=== PATIENT | male | born 1955 | race Caucasian/White ===

== ENCOUNTER 2018-12-25 05:34 | Emergency (ER) | payer MEDICARE, OTHER ==
[~2018-12-25] VITALS: Ht 182.9 cm; Wt 113.6 kg
[2018-12-25 05:52] LABS: GFR > 60 ML/MIN (>=60 (CALC)); GFR FOR AFR.AMER. > 60 ML/MIN (>=60 (CALC))
[2018-12-25 05:59] LABS: HEMATOCRIT 48.2 % (39.0-50.0); HEMOGLOBIN 15.8 g/dl (14.0-18.0); IMMATURE GRANULOCYTES 0.5 % (0.0-5.0); MEAN CELL VOLUME 95.4 fL CALC (80.0-100.0); MEAN CORPUSCULAR HGB 31.3 pG CALC (26.0-32.0); MEAN CORPUSCULAR HGB CONC 32.8 g/L CALC (32.0-36.0); NEUT# 5.65 thou/uL (1.82-7.42); RED BLOOD COUNT 5.05 mill/uL (4.70-6.10)
[2018-12-25 06:12] LABS: INTERNATIONAL NORMALIZED RATIO 1.1 RATIO (0.7-1.3); PROTHROMBIN TIME 11.1 SECONDS (9.0-12.5)
[2018-12-25 06:17] LABS: ALBUMIN 4.3 g/dL (3.2-5.0); ALKALINE PHOSPHATASE 57 u/l (38-126); BUN 16 mg/dL (8-23); BUN/CREATININE RATIO 15 (12-20 (CALC)); CHLORIDE 107 mmol/l (95-108); CREATININE 1.1 mg/dL (0.7-1.3); GFR > 60 ML/MIN (>=60 (CALC)); GFR FOR AFR.AMER. > 60 ML/MIN (>=60 (CALC)); POTASSIUM 4.9 mmol/l (3.5-5.1); SODIUM 140 mmol/l (137-146); TOTAL PROTEIN 6.9 g/dL (6.3-8.2)
[2018-12-25 06:20] LABS: ANION GAP 15 (6-22 (CALC)); BILIRUBIN, TOTAL 1.1 mg/dL (0.0-1.4); CARBON DIOXIDE 23 mmol/l (22-30); SGOT/AST 70 u/l (19-48)
[2018-12-25 06:28] LABS: MYOGLOBIN 45 ng/mL (0 - 121)
[2018-12-25] MEDS ORDERED: CARVEDILOL25 MG PO (07:00)
[2018-12-25] MEDS ORDERED: PLAVIX75 MG PO (07:01)
[2018-12-25] MEDS ORDERED: ZETIA10 MG PO (07:02)
[2018-12-25] MEDS ORDERED: FOLIC ACID1 MG PO (07:02)
[2018-12-25] MEDS ORDERED: LISINOPRIL20 MG PO (07:02)
[2018-12-25] MEDS ORDERED: CRESTOR40 MG PO (07:03)
[2018-12-25] MEDS ORDERED: SPIRONOLACT25 MG PO (07:04)
[2018-12-25] MEDS ORDERED: MULTIVITAMI1 PO (07:04)
[2018-12-25 08:06] VITALS: BP 123/61
== END 2018-12-25 08:35 | disposition short-term general hospital (02) ==
LOC: ED 05:34
PROVIDERS: Emergency Medicine
DX: G45.9 Transient cerebral ischemic attack, unspecified (principal); R47.81 Slurred speech; R47.1 Dysarthria and anarthria; R41.0 Disorientation, unspecified; I10 Essential (primary) hypertension; E78.5 Hyperlipidemia, unspecified; Z95.810 Presence of automatic (implantable) cardiac defibrillator; I25.2 Old myocardial infarction; Z95.1 Presence of aortocoronary bypass graft

== ENCOUNTER 2021-08-22 10:58 | Inpatient (IN) | payer MEDICARE, OTHER ==
[~2021-08-22] VITALS: Ht 182.9 cm; Wt 97.0 kg
[~2021-08-22 10:58] MED LIST: CARVEDILOL25 MG PO; CRESTOR20 MG PO; FOLIC ACID1 MG PO; LISINOPRIL20 MG PO; MULTIVITAMI1 PO; PLAVIX75 MG PO; SPIRONOLACT25 MG PO; ZETIA10 MG PO
--- NOTE | 2021-08-22 10:58 | NUR ---
PT ARRIVES WITH C/O DIZZINESS AND WEAKNESS AND SYNCOPE X 2 WEEKS. IN ATTENDANCE
--- NOTE | 2021-08-22 11:15 | NUR ---
PT PLEASANT AND COOPERATIVE. ALERT AND ORIENTED X3. UDPATED ON POC. NO C/O CHEST PAIN OR SOB, PT C/O WEAKNESS
[2021-08-22 11:26] LABS: HEMOGLOBIN 15.4 g/dl (14.0-18.0); IMMATURE GRANULOCYTES 0.1 % (0.0-5.0); MEAN CELL VOLUME 105.9 fL CALC (80.0-100.0); MEAN CORPUSCULAR HGB 34.7 pG CALC (26.0-32.0); MEAN CORPUSCULAR HGB CONC 32.8 g/dL CAL (32.0-36.0); NEUT# 7.29 thou/uL (1.82-7.42); RED BLOOD COUNT 4.44 mill/uL (4.70-6.10); RED CELL DISTRI WIDTH 12.5 % (11.5-15.5)
[2021-08-22 11:41] LABS: ALKALINE PHOSPHATASE 73 u/l (38-126); ANION GAP 14 (6-22 (CALC)); BUN 11 mg/dL (8-23); BUN/CREATININE RATIO 11 (12-20 (CALC)); CARBON DIOXIDE 24 mmol/l (22-30); CHLORIDE 104 mmol/l (95-108); CREATININE 0.9 mg/dL (0.7-1.3); GFR > 60 ML/MIN (>=60 (CALC)); GFR FOR AFR.AMER. > 60 ML/MIN (>=60 (CALC)); LIPASE 341 u/l (23-300); MAGNESIUM 1.7 mg/dL (1.6-2.3); SODIUM 137 mmol/l (137-146)
[2021-08-22 11:43] LABS: BILIRUBIN, TOTAL 1.8 mg/dL (0.0-1.4); SGOT/AST 131 u/l (19-48)
[2021-08-22] MEDS ORDERED: XARELTO20 MG PO (11:53)
[2021-08-22 12:12] LABS: TSH, 3RD GENERATION 0.86 uIU/mL (0.47 - 4.68)
--- NOTE | 2021-08-22 12:15 | NUR ---
RETURNED FROM CT WITH NURSE, ALERT AND RESPONSIVE, NO SOB OR C/O CHEST PAIN. ADMINISTERED LOPRESSOR 5MG SLOW IVP. PT TOLERATED WELL.
--- NOTE | 2021-08-22 13:53 | NUR ---
PER DR. WHATLEY, LOPRESSOR HELD AT THIS TIME, INSTRUCTED TO KEEP ON HAND FOR POSSIBLE ADMINISTRATION.
--- NOTE | 2021-08-22 14:19 | NUR ---
CARDIZEM DRIP INITIATED PER ORDER. PT STABLE.
--- NOTE | 2021-08-22 14:52 | NUR ---
PT STANDS AT THE BEDSIDE TO USE URINAL WITH RN AT HIS SIDE. PT BACK TO BED. PT STABLE.
--- NOTE | 2021-08-22 15:10 | NUR ---
PT RESTING WITH AT THE BEDSIDE, VSS. PT DENIES ANY PAIN. PT'S HANDS/ARMS NOTED TO BE SHAKEY. PER THIS IS NEW RECENTLY. PT STABLE.
[2021-08-22 15:25] LABS: URINE BILIRUBIN - DIPSTICK NEGATIVE (NEGATIVE); URINE BLOOD DIPSTICK NEGATIVE (NEGATIVE); URINE COLOR YELLOW; URINE GLUCOSE - DIPSTICK NEGATIVE (NEGATIVE); URINE KETONE TRACE mg/dL (NEGATIVE); URINE LEUK ESTERASE NEGATIVE (NEGATIVE); URINE PH 5.5 (4.5-8.0); URINE PROTEIN - DIPSTICK TRACE mg/dL (NEG-TRACE); URINE SPECIFIC GRAVITY 1.015
[2021-08-22 15:26] LABS: URINE NITRITE - DIPSTICK NEGATIVE (Negative)
--- NOTE | 2021-08-22 15:55 | NUR ---
PT ASSISTED TO BSC TO HAVE BM. PT WITH NO BM AT THIS TIME-FLATUS PASSED. PT REPORTS BM EARLIER THIS MORNING. PT BACK TO BED. WILL CONTINUE TO MONITOR.
--- NOTE | 2021-08-22 16:50 | NUR ---
PT REMAINS STABLE, AT THE BEDSIDE, WILL CONTINUE TO MONITOR.
--- NOTE | 2021-08-22 17:00 | NUR ---
PT REMAINS STABLE, AT THE BEDSIDE. DENIES NEEDS.
--- NOTE | 2021-08-22 18:00 | NUR ---
PT REMAINS STABLE, PT AWAITING ADMISSION TO ICU. CARDIZEM DRIP CONTINUES PER ORDERS. PT'S VSS. WILL CONTINUE TO MONITOR.
--- NOTE | 2021-08-22 19:15 | NUR ---
PT TAKEN TO ICU VIA STRETCHER IN STABLE CONDITION. ALL BELONGINGS AND PAPERWORK HANDED OFF TO RN.
--- NOTE | 2021-08-22 19:20 | NUR ---
RECEIVED INTO ICU BED 2 VIA BED ACCOMPANIED BY Rick NIX ED RN. PLACED ON THERAPIST RADIATION SHOWING ATRIAL FLUTTER, HR 90'S. ORIENTED TO SURROUNDINGS. EXPLAINED USE OF CALL PIERSON AND BED CONTROLS. CALL PIERSON IN REACH.
[2021-08-22 19:30] VITALS: BP 102/59
--- NOTE | 2021-08-22 19:30 | NUR ---
PATIENT IS ALERT AND ORIENTED, RESP NON-LABORED. LUNGS CLEAR. NO PERIPHERAL EDEMA, PULSES INTACT. IV IN RAC, SITE BENIGN, CARDIZEM GTT INFUSING AT 10 MG/HR AND NS AT KVO. ADMISSION ASSESSMENT COMPLETED. DISCUSSED PLAN OF CARE. DENIES NEEDS AT THIS TIME. CALL PIERSON IN REACH.
[2021-08-22 20:00] VITALS: BP 112/62
[2021-08-22 21:00] VITALS: BP 114/58
[2021-08-22 22:00] VITALS: BP 99/61
--- NOTE | 2021-08-22 22:00 | NUR ---
RESTING QUIETLY IN BED. VSS. RESP NON-LABORED. REMAINS IN ATRIAL FLUTTER.
[2021-08-22 23:00] VITALS: BP 97/61
[2021-08-23] VITALS (20 sets, daily range): BP systolic 66–175; BP diastolic 42–92
--- NOTE | 2021-08-23 | NUR ---
RESTING WITH EYES CLOSED. RESP NON-LABORED. VSS. REMAINS IN ATRIAL FLUTTER, HR 70'S.
--- NOTE | 2021-08-23 02:00 | NUR ---
REMAINS IN AFIB. CARDIZEM GTT INFUSING AT 5 MG/HR. VSS.
--- NOTE | 2021-08-23 04:00 | NUR ---
PATIENT AMBULATED TO BR WITH STABLE STANCE AND STEADY GAIT TO BR, VOIDED WITH BM.
--- NOTE | 2021-08-23 06:15 | NUR ---
VSS. RESP NON-LABORED. AFLUTTER ON MONITOR. CARDIZEM GTT INFUSING AT 5 MG/HR.
[2021-08-23 06:16] LABS: HEMATOCRIT 42.8 % (39.0-50.0); HEMOGLOBIN 14.2 g/dl (14.0-18.0); MEAN CELL VOLUME 106.2 fL CALC (80.0-100.0); MEAN CORPUSCULAR HGB 35.2 pG CALC (26.0-32.0); MEAN CORPUSCULAR HGB CONC 33.2 g/dL CAL (32.0-36.0); RED BLOOD COUNT 4.03 mill/uL (4.70-6.10); RED CELL DISTRI WIDTH 12.2 % (11.5-15.5)
[2021-08-23 06:43] LABS: ANION GAP 12 (6-22 (CALC)); BUN 12 mg/dL (8-23); BUN/CREATININE RATIO 14 (12-20 (CALC)); CALCULATED LDLCHOLESTEROL 52 mg/dL (62-129 (CALC)); CARBON DIOXIDE 25 mmol/l (22-30); CHLORIDE 104 mmol/l (95-108); CHOLESTEROL HDL RATIO 2.1 (<4.4 (CALC)); CREATININE 0.9 mg/dL (0.7-1.3); GFR > 60 ML/MIN (>=60 (CALC)); GFR FOR AFR.AMER. > 60 ML/MIN (>=60 (CALC)); HDL CHOLESTEROL 62 mg/dL (>=40); MAGNESIUM 1.6 mg/dL (1.6-2.3); POTASSIUM 3.9 mmol/l (3.5-5.1); SODIUM 137 mmol/l (137-146); TOTAL CHOLESTEROL 133 mg/dl (0-199); TOTAL TRIGLYCERIDES 94 mg/dl (30-149); VLDL CHOLESTROL 19 mg/dl (4-45 (CALC))
[2021-08-23] MEDS ORDERED: LEVOTHYROXIN100 MCG PO (07:41)
[2021-08-23] MEDS ORDERED: ROSUVASTATIN CA20 MG PO (07:43)
--- NOTE | 2021-08-23 11:12 | NUR ---
NOTIFIED MD OF HYPOTENSION. 250ML NS BOLUS GIVEN. WILL HOLD LISINOPRIL. PT NOT SYMPTOMATIC.
--- NOTE | 2021-08-23 12:48 | NUR ---
ECHO BEING COMPLETED AT BEDSIDE
--- NOTE | 2021-08-23 17:53 | NUR ---
NOTIFIED OF PERSISTANT HYPOTENSION. ORDERS RECIEVED AND FOLLOWED. PT IN BED, DENIES SYMPTOMS, NO S/S OF DISTRESS NOTED
--- NOTE | 2021-08-23 20:00 | NUR ---
RESTING IN BED WITHOUT COMPLAINTS. VSS. RESP NON-LABORED. LUNGS CLEAR. SHIFT ASSESSMENT COMPLETED. BIOLOGY MANAGER SHOWS AFLUTTER. DISCUSSED PLAN OF CARE. DENIES NEEDS AT THIS TIME. CALL PIERSON IN REACH.
--- NOTE | 2021-08-23 22:15 | NUR ---
SONATA 5 MG PO GIVEN FOR SLEEP. RESP NON-LABORED. VSS. AFLUTTER ON MONITOR.
[2021-08-24] VITALS (24 sets, daily range): BP systolic 75–123; BP diastolic 46–85
--- NOTE | 2021-08-24 | NUR ---
ASLEEP. RESP NON-LABORED. VSS. REMAINS IN AFLUTTER OCC PACED BEATS.
--- NOTE | 2021-08-24 04:00 | NUR ---
NO CAHNGES TO REPORT. VSS.
--- NOTE | 2021-08-24 05:00 | NUR ---
PATIENT IS AWAKE, SITTING UP AT SIDE OF BED. MONITOR AFIB-FLUTTER HR INCREASING THIS MORNING 110'S-120'S. WILL MONITOR CLOSELY.
[2021-08-24 05:43] LABS: HEMATOCRIT 42.3 % (39.0-50.0); HEMOGLOBIN 13.8 g/dl (14.0-18.0); IMMATURE GRANULOCYTES 0.2 % (0.0-5.0); MEAN CELL VOLUME 108.2 fL CALC (80.0-100.0); MEAN CORPUSCULAR HGB 35.3 pG CALC (26.0-32.0); MEAN CORPUSCULAR HGB CONC 32.6 g/dL CAL (32.0-36.0); NEUT# 3.86 thou/uL (1.82-7.42); RED BLOOD COUNT 3.91 mill/uL (4.70-6.10); RED CELL DISTRI WIDTH 12.6 % (11.5-15.5)
[2021-08-24 06:00] LABS: ANION GAP 10 (6-22 (CALC)); BUN 13 mg/dL (8-23); BUN/CREATININE RATIO 14 (12-20 (CALC)); CARBON DIOXIDE 27 mmol/l (22-30); CHLORIDE 103 mmol/l (95-108); GFR > 60 ML/MIN (>=60 (CALC)); GFR FOR AFR.AMER. > 60 ML/MIN (>=60 (CALC)); POTASSIUM 3.7 mmol/l (3.5-5.1); SODIUM 137 mmol/l (137-146)
--- NOTE | 2021-08-24 06:00 | NUR ---
HR VARIABLE 110'S-140'S. 0900 DOSE OF DIGOXIN GIVEN EARLY. PATIENT DENIES ANY DISCOMFORTS. AFIB ON MONITOR AT THIS TIME.
--- NOTE | 2021-08-24 06:38 | NUR ---
AFIB/FLUTTTER ON MONITOR, HR 80'S.
--- NOTE | 2021-08-24 07:32 | NUR ---
REPORT RECEIVED FROM GENERAL MAINTENANCE MECHANIC. PT RESTING QUIETLY ON RIGHT SIDE LISTENING TO PHONE UPON ASSESSMENT. DENIES ANY COMPLAINTS AT THIS TIME. HEART RATE IN THE 60'S, BLOOD PRESSURE LOW AT THIS TIME. WILL HOLD ALL BLOOD PRESSURE MEDICATIONS UNTIL FURTHER NOTICE. PTS HEART RATE STARTED GOING UP BUT PT GOT UP TO GO TO BATHROOM, SOON PT SAT DOWN HEART RATE DROPPED. PT STATES HE HAD DEFIB CHECKED ABOUT 3 MONTHS AGO
--- NOTE | 2021-08-24 09:36 | NUR ---
PT SITTING UP IN CHAIR REMAINS WITH NO COMPLAINTS. HELD THE COREG DUE TO LOW BLOOD PRESSURE PER DR. CUNNINGHAM, ADVISED PT TO USE CALL LIGHT WHENEVER HE WANTS TO GET UP DUE TO LOW BLOOD PRESSURE AND HEART RATE FLUCTUATION. AT THIS POINT PT APPEARS TO BE IN ATRIAL FLUTTER.
--- NOTE | 2021-08-24 10:56 | NUR ---
at bedside, pt sitting on side of bed, remains alert/oriented x3,, heart rate stays within the 100-110 range until pt gets up and moves around, then heart rate will increase to 130-140, but within seconds of sitting back down will decrease. no palpitations or sob noted when he stands and moves around.
--- NOTE | 2021-08-24 14:06 | NUR ---
pt resting quietly on bed watching tv, explained new medication that will be starting him on at 1500, pt remains in atrial flutter heart rate in mid 110-120's. denies any complaints at this time
[2021-08-24 16:52] LABS: INTERNATIONAL NORMALIZED RATIO 1.2 RATIO (0.7-1.3)
--- NOTE | 2021-08-24 16:55 | NUR ---
interogated pacemaker with the [facility]. called to verify it went thru, they stated that we would receive a fax with the information in about 15 min.
--- NOTE | 2021-08-24 17:52 | NUR ---
PT SITTING UP ON SIDE OF BED, AT BEDSIDE. HEART RATE AT 125, PAMELA CALLED FROM [facility] AND STATED THAT THE PTS DEFIB APPEARS TO BE WORKING FINE, THAT AFIB WITH RVR BEGAN LATE JUNE OFF AND ON
--- NOTE | 2021-08-24 19:00 | NUR ---
call received from Dr Casas; central line to be placed; ct of brain to be held until pt stable; will continue to monitor
--- NOTE | 2021-08-24 19:25 | NUR ---
pt awake in recliner; offers no complaints; no apparent distress noted; assessment completed at this time; pt alert and oriented; denies pain/ chest pain; no palpitations; no n/v noted; resp even and unlabored; lungs clear/ diminished; skin color wnl; ra; hr irreg; aflutter on monitor; strong pulses; no edema noted; abd soft with bs present; no bm noted per grant writer; pt admits to voiding without complication; no urine to inspect at this time; urinal at bedside; #20 saline locked to rac; no redness or edema noted at site; plan of care/ pm meds explained; po fluid provided; call light within reach; will continue to monitor
--- NOTE | 2021-08-24 20:10 | NUR ---
awake in recliner; offers no complaints; no apparent distress noted; aflutter on monitor; call light within reach; will continue to monitor
--- NOTE | 2021-08-24 21:26 | NUR ---
Dr Casas notified of bp; hr reviewed; order received to hold coreg
--- NOTE | 2021-08-24 22:21 | NUR ---
resting in bed with eyes closed; no apparent distress noted; iv intact; aflutter on monitor; call light within reach; will continue to monitor
[2021-08-25] VITALS (19 sets, daily range): BP systolic 80–145; BP diastolic 51–95
--- NOTE | 2021-08-25 00:18 | NUR ---
pt resting in bed with eyes closed; aflutter on monitor; no apparent distress noted; will continue to monitor
--- NOTE | 2021-08-25 02:04 | NUR ---
pt resting with eyes closed; no apparent distress noted; aflutter on monitor; iv intact; call light within reach; will continue to monitor
--- NOTE | 2021-08-25 04:30 | NUR ---
resting in bed with eyes closed; easily aroused; no apparent distress noted; pt offers no complaints; iv intact; aflutter on monitor; will continue to monitor
[2021-08-25 05:59] LABS: HEMATOCRIT 42.5 % (39.0-50.0); HEMOGLOBIN 13.9 g/dl (14.0-18.0); IMMATURE GRANULOCYTES 0.1 % (0.0-5.0); MEAN CELL VOLUME 107.6 fL CALC (80.0-100.0); MEAN CORPUSCULAR HGB 35.2 pG CALC (26.0-32.0); MEAN CORPUSCULAR HGB CONC 32.7 g/dL CAL (32.0-36.0); NEUT# 4.73 thou/uL (1.82-7.42); RED BLOOD COUNT 3.95 mill/uL (4.70-6.10); RED CELL DISTRI WIDTH 12.5 % (11.5-15.5)
--- NOTE | 2021-08-25 06:10 | NUR ---
awake sitting in recliner; offers no complaints; no apparent distress noted; aflutter on monitor; iv intact; call light within reach
[2021-08-25 06:21] LABS: ANION GAP 10 (6-22 (CALC)); BUN 11 mg/dL (8-23); BUN/CREATININE RATIO 14 (12-20 (CALC)); CARBON DIOXIDE 28 mmol/l (22-30); CHLORIDE 103 mmol/l (95-108); CREATININE 0.8 mg/dL (0.7-1.3); GFR > 60 ML/MIN (>=60 (CALC)); GFR FOR AFR.AMER. > 60 ML/MIN (>=60 (CALC)); MAGNESIUM 1.8 mg/dL (1.6-2.3); POTASSIUM 3.7 mmol/l (3.5-5.1); SODIUM 138 mmol/l (137-146)
--- NOTE | 2021-08-25 07:10 | NUR ---
PT RESTING QUIETLY ON BED, VITAL SIGNS STABLE, PT REMAINS IN AFLUTTER, WANTS TO GO HOME TODAY, DENIES ANY COMPLAINTS AT THIS TIME
--- NOTE | 2021-08-25 11:25 | NUR ---
PT DENIES ANY COMPLAINTS, DENIES DIZZINESS, WEAKNESS, OR PALPITATIONS. REMAINS SHAKING ON OCCASSION, BUT STATES HAS BEEN DOING THAT FOR YEARS. AT BEDSIDE. VITAL SIGNS STABLE. ADVISED OF MEDS TRYING PER DOCTOR FOR HEART RATE
--- NOTE | 2021-08-25 13:15 | NUR ---
PT REMAINS SITTING UP AT BEDSIDE WITH AT BEDSIDE.
--- NOTE | 2021-08-25 15:46 | NUR ---
PT AT BEDSIDE , PT HEART RATE HAS APPEARED TO STABILIZE WITH NEW MEDS GIVEN. HE IS HOPING TO BE ABLE TO GO HOME. HAS BEEN UP MOVING AROUND THE ROOM WITH LESS INCREASING OF HEART RATE THAN YESTERDAY. NO COMPLAINTS.
--- NOTE | 2021-08-25 20:00 | NUR ---
RESTING IN BED. VSS. RESP NON-LABORED. LUNGS CLEAR, SLT DIMINISHED IN BILATERAL BASES. REMAINS IN ATRIAL FIB/FLUTTER ON MONITOR. HR VARIABLE 80'S-120'S. WILL CONTINUE TO MONITOR CLOSELY. DISCUSSED PLAN OF CARE. DENIES NEEDS AT THIS TIME. CALL PIERSON IN REACH.
--- NOTE | 2021-08-25 22:00 | NUR ---
RESTING IN BED WITH EYES CLOSED. RESP NON-LABORED. VSS. AFLUTTER ON MONITOR OCC PACED RHYTHM, HR CONTINUES TO BE VARIABLE.
[2021-08-26] VITALS (7 sets, daily range): BP systolic 89–138; BP diastolic 68–85
--- NOTE | 2021-08-26 00:02 | NUR ---
RESTING WITH EYES CLOSED. RESP NON-LABORED. AFLUTTER ON MONITOR.
--- NOTE | 2021-08-26 02:00 | NUR ---
SLEEPING. NO CHANGES TO REPORT. VSS.
--- NOTE | 2021-08-26 04:00 | NUR ---
PATIENT AWAKE, SITTING UP IN RECLINER LISTENING TO AUDIO BOOKS. NO COMPLAINTS VOICED. VSS.
--- NOTE | 2021-08-26 05:30 | NUR ---
SITTING UP IN CHAIR. TYLENOL 650 MG PO G IVEN FOR C/O BACK ACHE.
[2021-08-26 05:32] LABS: HEMATOCRIT 43.2 % (39.0-50.0); HEMOGLOBIN 13.9 g/dl (14.0-18.0); IMMATURE GRANULOCYTES 0.2 % (0.0-5.0); MEAN CELL VOLUME 107.7 fL CALC (80.0-100.0); MEAN CORPUSCULAR HGB 34.7 pG CALC (26.0-32.0); MEAN CORPUSCULAR HGB CONC 32.2 g/dL CAL (32.0-36.0); NEUT# 4.46 thou/uL (1.82-7.42); RED BLOOD COUNT 4.01 mill/uL (4.70-6.10); RED CELL DISTRI WIDTH 12.4 % (11.5-15.5)
[2021-08-26 05:56] LABS: ANION GAP 10 (6-22 (CALC)); BUN 11 mg/dL (8-23); BUN/CREATININE RATIO 14 (12-20 (CALC)); CARBON DIOXIDE 29 mmol/l (22-30); CHLORIDE 103 mmol/l (95-108); CREATININE 0.8 mg/dL (0.7-1.3); GFR > 60 ML/MIN (>=60 (CALC)); GFR FOR AFR.AMER. > 60 ML/MIN (>=60 (CALC)); MAGNESIUM 1.7 mg/dL (1.6-2.3); POTASSIUM 3.8 mmol/l (3.5-5.1); SODIUM 139 mmol/l (137-146)
--- NOTE | 2021-08-26 07:30 | NUR ---
pt awake in recliner; no apparent distress noted; pt offers no complaints; assessment completed at this time; pt alert and oriented; c/o of "twisting back" but deny pain at this time; no n/v noted; resp even and unlabored; lungs coarse; skin color wnl; ra; presser all around loose cough noted; hr irreg; strong pulses; no edema noted; paced/aflutter on monitor; abd soft with bs present; no bm noted at this time; no urine to inspect; urinal at bedside; #20 to rac saline locked; no redness or edema noted at site; plan of care/ meds explained; call light within reach; will continue to monitor
--- NOTE | 2021-08-26 08:15 | NUR ---
awake in recliner; no distress noted; call light within reach; will continue to monitor
--- NOTE | 2021-08-26 08:33 | NUR ---
Dr Casas present at bedside to assess pt and discuss plan of care
--- NOTE | 2021-08-26 10:00 | NUR ---
pt awake in recliner; scientific writer at bedside to observe pt ambulating within room; no apparent distress noted; no sob; steady gait; paced with max hr of 96 with activity; call light within reach; will continue to monitor
[2021-08-26] MEDS ORDERED: TOPROL XL50 MG PO (10:53)
--- NOTE | 2021-08-26 11:15 | NUR ---
spouse at bedside; pt anxiously awaiting dc; paced on monitor; will continue to monitor
--- NOTE | 2021-08-26 12:00 | NUR ---
Discharge instructions given. Patient verbalizes understanding of same. Discharged in condition via Wheelchair to Home with spouse. All belongings sent with pt.
== END 2021-08-26 12:00 | disposition home or self-care (01) | DRG 309 ==
LOC: ED 10:58 → ED-I 12:15 → ED 14:41 → ICU 14:42 → ED-I 14:42 → ICU 19:12
PROVIDERS: Emergency Medicine; Nurse Practitioner; ADMIT Internal Medicine; ATTEND Internal Medicine
DX: I48.0 Paroxysmal atrial fibrillation (principal); I50.22 Chronic systolic (congestive) heart failure; I25.810 Atherosclerosis of coronary artery bypass graft(s) without angina pectoris; F10.139 Alcohol abuse with withdrawal, unspecified; I11.0 Hypertensive heart disease with heart failure; I48.92 Unspecified atrial flutter; I25.5 Ischemic cardiomyopathy; I95.2 Hypotension due to drugs; T44.7X5A Adverse effect of beta-adrenoreceptor antagonists, initial encounter; I25.10 Atherosclerotic heart disease of native coronary artery without angina pectoris; E03.9 Hypothyroidism, unspecified; E78.5 Hyperlipidemia, unspecified; G47.33 Obstructive sleep apnea (adult) (pediatric); D75.1 Secondary polycythemia; I25.2 Old myocardial infarction; R74.01 Elevation of levels of liver transaminase levels; F17.220 Nicotine dependence, chewing tobacco, uncomplicated; Z79.01 Long term (current) use of anticoagulants; Z86.73 Personal history of transient ischemic attack (TIA), and cerebral infarction without residual deficits; Z95.5 Presence of coronary angioplasty implant and graft; Z95.810 Presence of automatic (implantable) cardiac defibrillator; Z95.1 Presence of aortocoronary bypass graft; Z20.822 Contact with and (suspected) exposure to COVID-19
CPT/HCPCS: J1160; J3475; Q9967

== ENCOUNTER 2021-10-07 07:18 | Day surgery (SDC) | payer MEDICARE, OTHER ==
[~2021-10-07] VITALS: Ht 185.4 cm; Wt 97.5 kg
[~2021-10-07 07:18] MED LIST changes: +ASPIRIN81 MG PO; +LEVOTHYROXIN100 MCG PO; +MELATONIN MAXIM10 MG PO; +PREVAGEN10 MG PO; +ROSUVASTATIN CA20 MG PO; +TOPROL XL50 MG PO; +VITAMIN D35000 UNIT PO; +XARELTO20 MG PO
[2021-10-07 10:06] VITALS: BP 139/74
== END 2021-10-07 10:00 | disposition home or self-care (01) ==
LOC: ORM 07:18
PROVIDERS: ATTEND Urology
PROC: 0VB03ZX Excision of Prostate, Percutaneous Approach, Diagnostic (ICD-10-PCS; principal; 2021-10-07)
PROC: BV49ZZZ Ultrasonography of Prostate and Seminal Vesicles (ICD-10-PCS; 2021-10-07)
DX: C61 Malignant neoplasm of prostate (principal); N40.1 Benign prostatic hyperplasia with lower urinary tract symptoms; N13.8 Other obstructive and reflux uropathy; I10 Essential (primary) hypertension; I25.10 Atherosclerotic heart disease of native coronary artery without angina pectoris; I25.5 Ischemic cardiomyopathy; E78.5 Hyperlipidemia, unspecified; Z86.73 Personal history of transient ischemic attack (TIA), and cerebral infarction without residual deficits; Z95.810 Presence of automatic (implantable) cardiac defibrillator; Z87.891 Personal history of nicotine dependence; Z95.1 Presence of aortocoronary bypass graft
CPT/HCPCS: J1956

== ENCOUNTER 2023-08-13 13:12 | Inpatient (IN) | payer MEDICARE, OTHER ==
[~2023-08-13] VITALS: Ht 185.4 cm; Wt 96.6 kg
[2023-08-13] VITALS (21 sets, daily range): BP systolic 96–135; BP diastolic 45–68
[2023-08-13 14:14] LABS: ALBUMIN 3.8 g/dL (3.2-5.0); ALKALINE PHOSPHATASE 80 u/l (38-126); ANION GAP 12 (6-22 (CALC)); BUN 10 mg/dL (8-23); BUN/CREATININE RATIO 12 (12-20 (CALC)); CARBON DIOXIDE 24 mmol/l (22-30); CHLORIDE 108 mmol/l (95-108); CREATININE 0.8 mg/dL (0.7-1.3); GFR FOR AFR.AMER. > 60 ML/MIN (>=60 (CALC)); GFR OTHER RACES > 60 ML/MIN (>=60 (CALC)); POTASSIUM 4.2 mmol/l (3.5-5.1); SGOT/AST 65 u/l (19-48); SODIUM 140 mmol/l (137-146); TOTAL PROTEIN 6.9 g/dL (6.3-8.2)
[2023-08-13 14:22] LABS: BASO% 0.3 % (0-3); HEMATOCRIT 37.9 % (39.0-50.0); HEMOGLOBIN 11.7 g/dl (14.0-18.0); LYMPH% 8.9 % (15-41); MEAN CELL VOLUME 92.7 fL CALC (80.0-100.0); MEAN CORPUSCULAR HGB 28.6 pG CALC (26.0-32.0); MEAN CORPUSCULAR HGB CONC 30.9 g/dL CAL (32.0-36.0); NEUT# 6.21 thou/uL (1.82-7.42); NEUT% 83.8 % (42-76); RED BLOOD COUNT 4.09 mill/uL (4.70-6.10); RED CELL DISTRI WIDTH 14.2 % (11.5-15.5)
[2023-08-13 15:41] LABS: URINE BILIRUBIN - DIPSTICK Negative (NEGATIVE); URINE BLOOD DIPSTICK Negative (NEGATIVE); URINE GLUCOSE - DIPSTICK Negative (NEGATIVE); URINE KETONE Negative (NEGATIVE); URINE LEUK ESTERASE Negative (NEGATIVE); URINE NITRITE - DIPSTICK Negative (Negative); URINE PH 5.5 (4.5-8.0); URINE PROTEIN - DIPSTICK Negative (NEG-TRACE); URINE SPECIFIC GRAVITY 1.015; URINE UROBILINOGEN - DIPSTICK 0.2 E.U./dL (0.2)
[2023-08-13 15:49] LABS: URINE COLOR Yellow
[2023-08-13] MEDS ORDERED: ALDACTONE50 MG PO (16:27)
[2023-08-13] MEDS ORDERED: LOPRESSOR 550 MG/TAB PO (16:27)
[2023-08-13] MEDS ORDERED: B COMPLEX-1 PO (16:28)
[2023-08-14] VITALS (8 sets, daily range): BP systolic 100–127; BP diastolic 34–61
[2023-08-14 06:26] LABS: BASO% 0.2 % (0-3); EOS% 0.1 % (0-8); HEMATOCRIT 32.1 % (39.0-50.0); HEMOGLOBIN 10.2 g/dl (14.0-18.0); IMMATURE GRANULOCYTES 0.9 % (0.0-5.0); LYMPH% 9.5 % (15-41); MEAN CELL VOLUME 89.9 fL CALC (80.0-100.0); MEAN CORPUSCULAR HGB 28.6 pG CALC (26.0-32.0); MEAN CORPUSCULAR HGB CONC 31.8 g/dL CAL (32.0-36.0); MONO% 8.9 % (2-13); NEUT# 10.37 thou/uL (1.82-7.42); NEUT% 80.4 % (42-76); RED BLOOD COUNT 3.57 mill/uL (4.70-6.10); RED CELL DISTRI WIDTH 14.2 % (11.5-15.5)
[2023-08-14 06:59] LABS: ALKALINE PHOSPHATASE 72 u/l (38-126); ANION GAP 10 (6-22 (CALC)); BILIRUBIN, TOTAL 1.3 mg/dL (0.2-1.3); BUN 12 mg/dL (8-23); BUN/CREATININE RATIO 15 (12-20 (CALC)); CALCULATED LDLCHOLESTEROL 47 mg/dL (62-129 (CALC)); CARBON DIOXIDE 22 mmol/l (22-30); CHLORIDE 110 mmol/l (95-108); CHOLESTEROL HDL RATIO 2.4 (<4.4 (CALC)); CREATININE 0.8 mg/dL (0.7-1.3); GFR FOR AFR.AMER. > 60 ML/MIN (>=60 (CALC)); GFR OTHER RACES > 60 ML/MIN (>=60 (CALC)); HDL CHOLESTEROL 42 mg/dL (39.0-59.0); POTASSIUM 3.6 mmol/l (3.5-5.1); SGOT/AST 48 u/l (19-48); SODIUM 139 mmol/l (137-146); TOTAL CHOLESTEROL 101 mg/dl (0-199); TOTAL PROTEIN 5.7 g/dL (6.3-8.2); TOTAL TRIGLYCERIDES 59 mg/dl (0-149); VLDL CHOLESTROL 12 mg/dl (4-45 (CALC))
[2023-08-15 00:49] VITALS: BP 132/61
[2023-08-15 05:21] LABS: HEMATOCRIT 33.6 % (39.0-50.0); HEMOGLOBIN 10.8 g/dl (14.0-18.0); MEAN CELL VOLUME 90.8 fL CALC (80.0-100.0); MEAN CORPUSCULAR HGB 29.2 pG CALC (26.0-32.0); MEAN CORPUSCULAR HGB CONC 32.1 g/dL CAL (32.0-36.0); RED BLOOD COUNT 3.7 mill/uL (4.70-6.10)
[2023-08-15 05:22] LABS: ALBUMIN 3.1 g/dL (3.2-5.0); ALKALINE PHOSPHATASE 74 u/l (38-126); ANION GAP 9 (6-22 (CALC)); BILIRUBIN, TOTAL 1.1 mg/dL (0.2-1.3); BUN 12 mg/dL (8-23); BUN/CREATININE RATIO 16 (12-20 (CALC)); CARBON DIOXIDE 25 mmol/l (22-30); CHLORIDE 109 mmol/l (95-108); CREATININE 0.8 mg/dL (0.7-1.3); GFR FOR AFR.AMER. > 60 ML/MIN (>=60 (CALC)); GFR OTHER RACES > 60 ML/MIN (>=60 (CALC)); MAGNESIUM 1.6 mg/dL (1.6-2.3); POTASSIUM 3.7 mmol/l (3.5-5.1); SGOT/AST 40 u/l (19-48); SODIUM 139 mmol/l (137-146)
[2023-08-15 06:30] VITALS: BP 132/73
[2023-08-15] MEDS ORDERED: OMNICEF300 MG PO (10:12)
[2023-08-15] MEDS ORDERED: VIBRAMYCIN100 M2 PO (10:13)
[2023-08-15 10:54] VITALS: BP 117/58
[2023-08-15] MEDS ORDERED: LASIX 40 MG TAB40 MG PO (11:51)
== END 2023-08-15 14:31 | disposition home or self-care (01) | DRG 193 ==
LOC: ED 13:12 → ED-I 16:00 → ED 16:20 → MS2 16:21
PROVIDERS: Nurse Practitioner; Student in an Organized Health Care Education/Training Program; ADMIT Student in an Organized Health Care Education/Training Program; ATTEND Student in an Organized Health Care Education/Training Program
DX: J18.9 Pneumonia, unspecified organism (principal); I50.23 Acute on chronic systolic (congestive) heart failure; E87.20 Acidosis, unspecified; I24.89 Other forms of acute ischemic heart disease; I11.0 Hypertensive heart disease with heart failure; D69.6 Thrombocytopenia, unspecified; I48.91 Unspecified atrial fibrillation; I25.10 Atherosclerotic heart disease of native coronary artery without angina pectoris; E03.9 Hypothyroidism, unspecified; I25.5 Ischemic cardiomyopathy; E78.5 Hyperlipidemia, unspecified; G47.33 Obstructive sleep apnea (adult) (pediatric); I25.2 Old myocardial infarction; Z86.73 Personal history of transient ischemic attack (TIA), and cerebral infarction without residual deficits; Z95.1 Presence of aortocoronary bypass graft; Z72.0 Tobacco use; Z95.5 Presence of coronary angioplasty implant and graft; Z79.01 Long term (current) use of anticoagulants; Z20.822 Contact with and (suspected) exposure to COVID-19
CPT/HCPCS: J3370